=== PATIENT | male | born 1960 | race Caucasian/White ===

== ENCOUNTER → 2020-11-24 | Day surgery (SDC) | payer OTHER ==
[~2020-11-24] MED LIST: Ketamine 200 MG/20 ML MDV ONE; Lactated Ringers 1,000 ML IV SCH; Metoprolol Tartrate 5 MG/5 ML SDV ONE; Propofol 200 MG/20 ML SDV ONE; fentaNYL 100 MCG/2 ML SDV ONE
--- NOTE | 2020-11-24 13:20 | OR ---
DATE OF OPERATION: 11/24/2020 PREOPERATIVE DIAGNOSIS: HISTORY OF POLYPS. POSTOPERATIVE DIAGNOSIS: HISTORY OF POLYPS. SURGEON: Antonio Parson MD PROCEDURE: DIAGNOSTIC COLONOSCOPY WITH SNARE POLYPECTOMY X3, FORCEPS POLYP REMOVAL X4. ANESTHESIA: MAC. COMPLICATIONS: None. SPECIMEN: Seven polyps, see report, largest being approximately 6 to 7 mm. FINDINGS: 1. Full-length diagnostic colonoscopy. 2. Colon polyps x7, see report. 3. Mild sigmoid diverticulosis. RECOMMENDATIONS: Followup colonoscopy in 1 year. INDICATIONS: The patient had a prior colonoscopy about 5 years ago. He had 9 polyps removed. He was supposed to have a 1- or 2-year followup, he did not, it has been over 5 years. Tiffanie sent him for scope. DESCRIPTION OF PROCEDURE: The patient was prepped and draped, placed in the left lateral decubitus position. A lubricated Olympus colonoscope was inserted and easily advanced to the cecum. We were able to directly visualize the ileocecal valve and the appendiceal orifice. The bowel prep was marginal at times. There was a lot of liquid stool. Most of this could be suctioned, some not, and certainly smaller lesions could have been missed. Upon withdrawal, the cecum and ascending colon appeared benign. Just past the hepatic flexure, in the immediate proximal transverse colon, the patient had a flat 5 to 6 mm villous polyp removed with a snare and suctioned into polyp trap #1. In the mid transverse colon, he had a similar size villous polyp also removed with a snare and suctioned into polyp trap #2. Right at the splenic flexure, the patient had a third small sessile polyp only about 2 to 3 mm removed with forceps. The descending colon appeared unremarkable. In the mid sigmoid colon at approximately 40 cm, the patient had a large tubular adenoma removed with a snare and suctioned into polyp trap #3. It measured around 6 to 7 mm. At 35 cm silvina, the patient had 2 small flat sessile polyps, likely hyperplastic, each removed with a forceps. The rectosigmoid junction appeared unremarkable. In the proximal rectal vault, the patient had another small sessile polyp, also likely hyperplastic, removed with a forceps. Retroflexion showed no perianal lesions. Air was then suctioned and the scope removed without complication. CAITLYN/GINNY /[id number]
[2020-11-24 13:32] VITALS: BP 139/80; PULSE 63
== END ==
LOC: CC.SDS 10:22
PROVIDERS: ATTEND Family Medicine
DX: Z12.11 Encounter for screening for malignant neoplasm of colon (principal); D12.3 Benign neoplasm of transverse colon; D17.5 Benign lipomatous neoplasm of intra-abdominal organs; D12.5 Benign neoplasm of sigmoid colon; K62.1 Rectal polyp; K57.30 Diverticulosis of large intestine without perforation or abscess without bleeding; I25.10 Atherosclerotic heart disease of native coronary artery without angina pectoris; I25.2 Old myocardial infarction; G47.33 Obstructive sleep apnea (adult) (pediatric); I10 Essential (primary) hypertension; E78.5 Hyperlipidemia, unspecified; F17.210 Nicotine dependence, cigarettes, uncomplicated; Z86.010 Personal history of colon polyps; Z80.0 Family history of malignant neoplasm of digestive organs; Z95.1 Presence of aortocoronary bypass graft; Z79.82 Long term (current) use of aspirin; Z79.899 Other long term (current) drug therapy
CPT/HCPCS: 00811; J2704; J3010; J3490; J7120

== ENCOUNTER → 2022-05-24 | Day surgery (SDC) | payer OTHER ==
[~2022-05-24] MED LIST changes: -Metoprolol Tartrate 5 MG/5 ML SDV ONE; -fentaNYL 100 MCG/2 ML SDV ONE; +fentaNYL 50 MCG/ML SDV ONE
[2022-05-24 12:12] VITALS: BP 141/76; PULSE 68
== END ==
LOC: CC.SDS 09:49
PROVIDERS: ATTEND Family Medicine
DX: Z12.11 Encounter for screening for malignant neoplasm of colon (principal); E78.5 Hyperlipidemia, unspecified; I10 Essential (primary) hypertension; G47.00 Insomnia, unspecified; F32.A Depression, unspecified; F17.210 Nicotine dependence, cigarettes, uncomplicated; Z86.16 Personal history of COVID-19; Z86.010 Personal history of colon polyps; Z80.0 Family history of malignant neoplasm of digestive organs; Z95.1 Presence of aortocoronary bypass graft; Z79.82 Long term (current) use of aspirin; Z79.899 Other long term (current) drug therapy; Z98.890 Other specified postprocedural states
CPT/HCPCS: J2704; J3010; J7120

== ENCOUNTER 2024-03-19 08:55 | Day surgery (SDC) | payer OTHER ==
[2024-03-19] MEDS: Lactated Ringers 1,000 ML IV SCH (09:19)
[2024-03-19] MEDS ORDERED: Ketamine 200 MG/20 ML MDV ONE (09:23)
[2024-03-19] MEDS ORDERED: Lidocaine 2% 20 ML MDV ONE (09:23)
[2024-03-19] MEDS ORDERED: Propofol 200 MG/20 ML SDV ONE (09:23)
[2024-03-19] MEDS ORDERED: fentaNYL 50 MCG/ML SDV ONE (09:23)
[2024-03-19 10:38] VITALS: BP 121/64; PULSE 57
== END 2024-03-19 10:33 | disposition home or self-care (01) ==
LOC: CC.SDS 08:55
PROVIDERS: ATTEND Family Medicine
DX: K21.00 Gastro-esophageal reflux disease with esophagitis, without bleeding (principal); K29.80 Duodenitis without bleeding; I10 Essential (primary) hypertension; E78.5 Hyperlipidemia, unspecified; F32.A Depression, unspecified; Z79.899 Other long term (current) drug therapy
CPT/HCPCS: 00731; 43239; 87081; J2704; J3010; J7120; J3490